=== PATIENT | female | born 1985 | race Caucasian/White ===

== ENCOUNTER 2016-09-08 10:37 | Emergency (ER) ==
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
[2016-09-08 11:25] LABS: URINE SOURCE CLEAN CATCH
[2016-09-08 11:51] LABS: BILIRUBIN URINE NEGATIVE (NEGATIVE); BLOOD URINE NEGATIVE (NEGATIVE); CLARITY CLEAR (CLEAR); COLOR YELLOW; GLUCOSE URINE NEGATIVE (NEGATIVE); LEUKOCYTES URINE 2+ (NEGATIVE); NITRITE URINE NEGATIVE (NEGATIVE); PROTEIN URINE TRACE mg/dL (NEGATIVE); UROBILINOGEN URINE NORMAL
[2016-09-08 11:52] LABS: URINE CULTURE PL NEEDED? YES; URINE EPITHELIAL CELLS >10 /HPF (<10); URINE WBC 20-40 /HPF (<10)
[2016-09-08 12:21] VITALS: BP 110/79
== END 2016-09-08 13:11 | disposition home or self-care (01) ==
LOC: P.ED 10:37
DX: O26.892 Other specified pregnancy related conditions, second trimester (principal); M54.5 Low back pain; Z3A.16 16 weeks gestation of pregnancy; V89.2XXA Person injured in unspecified motor-vehicle accident, traffic, initial encounter; O99.282 Endocrine, nutritional and metabolic diseases complicating pregnancy, second trimester; Z79.899 Other long term (current) drug therapy
CPT/HCPCS: 36415; 81001; 84702; 87088; 99283